=== PATIENT | male | born 2005 | race Caucasian/White ===

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

== ENCOUNTER 2025-05-17 12:48 | Emergency (ER) | payer OTHER ==
[~2025-05-17] VITALS: Ht 180.3 cm; Wt 77.1 kg
[2025-05-17] MEDS ORDERED: LACTOBACILLUS ACIDOPHILUS 1 CAP CAP PO STA (15:03)
[2025-05-17] MEDS ORDERED: FAMOTIDINE/PF 20 MG/2 ML VIAL IV STA (15:03)
[2025-05-17] MEDS ORDERED: ONDANSETRON HCL 2 MG/ML VIAL IV STA (15:06)
[2025-05-17] MEDS ORDERED: 0.9 % SODIUM CHLORIDE 1,000 ML IV SCH ×2 (15:15)
[2025-05-17] MEDS ORDERED: LACTOBACILLUS ACIDOPHILUS 1 CAP CAP PO ONE (17:19)
[2025-05-17] MEDS ORDERED: FAMOTIDINE/PF 20 MG/2 ML VIAL ONE (17:19)
[2025-05-17] MEDS ORDERED: ONDANSETRON HCL 2 MG/ML VIAL ONE ×2 (17:19→17:24)
[2025-05-17 17:47] LABS: BASO % 0.2 % (0.1-1.2); EOS # 0.00 (0.04-0.54); EOS % 0.0 % (0.7-7.0); LYMPH # 0.38 (1.18-3.74); LYMPH % 2.9 % (19.3-53.1); MEAN PLATELET VOLUME 9.80 fl (9.4-12.4); MONO # 0.62 (0.24-0.82); MONO % 4.7 % (4.7-12.5); NEUT # 12.10 (1.56-6.13); NEUT % 91.9 % (34.0-71.1); RED CELL DISTRIBUTION WIDTH 11.7 % (11.6-14.4)
[2025-05-17 18:09] LABS: COVID-19 AG NEGATIVE (NEGATIVE)
[2025-05-17 18:23] LABS: ALT/SGPT 40.0 U/L (12-78); AST/SGOT 19.0 U/L (15-37); BILIRUBIN TOTAL 0.81 mg/dL (0.3-1.2); BUN CREA RATIO 15.0 (7.0-25.0); CREATININE SERUM 0.94 mg/dL (0.70-1.30); GFR 102.31; GLOBULINA 3.7 G/DL (2.4-3.5); GLUCOSE FASTING 106.0 mg/dL (65-100); OSMOLALITY SERUM 273.0 MOSM/KG (275-295)
[2025-05-17 19:11] LABS: URINE APPEARANCE Cloudy; URINE BILIRRUBIN Negative (NEGATIVE); URINE BLOOD Negative; URINE COLOR Dark Yellow; URINE GLUCOSE Negative (NEGATIVE); URINE LEUKOCYTE Negative; URINE NITRATE Negative; URINE PROTEIN 30 (NEGATIVE); URINE UROBILINOGEN 0.2 E.U./dl
[2025-05-17 19:15] LABS: URINE BACTERIA 46.7 uL (0.0-1933); URINE CAST 2.49 uL (0.0-1.40); URINE EPITHELIAL CELLS 25.3 uL (0.0-38.8); URINE RBC 49.5 uL (0.0-20.8); URINE WBC 23.9 uL (0.0-23.2)
[2025-05-17 19:36] LABS: URINE KETONE 40 (NEGATIVE)
[2025-05-17 19:50] LABS: URINE CRYSTALS FEW /HPF; URINE MUCUS MODERATE
== END 2025-05-17 22:42 | disposition home or self-care (01) ==
LOC: ER 12:49 → EMR PED 13:39 → ER 13:39 → EMR PED 22:42
PROVIDERS: Pediatrics
DX: K52.89 Other specified noninfective gastroenteritis and colitis (principal); R63.0 Anorexia; E86.0 Dehydration; Z88.1 Allergy status to other antibiotic agents; Z20.822 Contact with and (suspected) exposure to COVID-19